=== PATIENT | male | born 1965 | race African-American/Black ===

== ENCOUNTER 2018-10-17 07:10 | Emergency (ER) | payer OTHER ==
[2018-10-17 07:40] VITALS: BP 130/80; PULSE 81; TEMP 98.5; BMI 30.5
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
== END 2018-10-17 09:01 | disposition home or self-care (01) ==
LOC: JER 07:10
DX: M79.642 Pain in left hand (principal); Y04.2XXA Assault by strike against or bumped into by another person, initial encounter; Y93.89 Activity, other specified; Y92.238 Other place in hospital as the place of occurrence of the external cause; Y99.0 Civilian activity done for income or pay; Y07.9 Unspecified perpetrator of maltreatment and neglect
CPT/HCPCS: 73130-TC-LT-FY; 99281-25

== ENCOUNTER 2021-09-03 19:55 | Emergency (ER) | payer BC, OTHER ==
[2021-09-03 20:17] VITALS: BP 141/84; PULSE 120; TEMP 98; BMI 33.5
== END 2021-09-03 20:59 | disposition home or self-care (01) ==
LOC: JERFT 19:55
DX: L02.31 Cutaneous abscess of buttock (principal); L03.317 Cellulitis of buttock
CPT/HCPCS: 87070; 87205; 99283-25

== ENCOUNTER 2022-07-15 09:54 | Emergency (ER) | payer BC ==
[2022-07-15 10:11] VITALS: TEMP 98.2; BMI 33.7
[2022-07-15] MEDS ORDERED: FAMOTIDINE 20 MG/50 ML IVPB 20 MG/50 ML MG IVPB ONE (10:46)
[2022-07-15] MEDS ORDERED: ACETAMINOPHEN 1000 MG/100 ML BAG IVPB ONE (10:46)
[2022-07-15] MEDS ORDERED: MAG HYDROX/AL HYDROX/SIMETH 30 ML UNIT-DOSE CUP PO ONE (10:46)
[2022-07-15] MEDS ORDERED: FAMOTIDINE 10 MG/ML VIAL IVPB ONE (11:05)
[2022-07-15] MEDS ORDERED: ACETAMINOPHEN INJECTION 100 ML IVPB ONE (11:05)
[2022-07-15] MEDS ORDERED: MAG HYDROX/AL HYDROX/SIMETH 30 ML UNIT-DOSE CUP ONE (11:05)
[2022-07-15 11:40] LABS: HEMATOCRIT 44.1 % (35.4-49); HEMOGLOBIN 15.3 GM/dL (11.7-16.9); MCH 28.5 pg (25.7-33.7); MCHC 34.7 g/dl (32.0-35.9); MEAN CELL VOLUME 82.1 fl (80-96); MEAN PLT VOLUME 9.8 fl (7.5-11.1); PLATELET COUNT 173 10^3/uL (134-434); RBC 5.37 M/mm3 (4.00-5.60); RDW 13.5 % (11.9-15.9); WHITE BLOOD COUNT 5.3 K/mm3 (4.0-10.0)
[2022-07-15 12:06] LABS: POTASSIUM 4.6 mmol/L (3.5-5.1)
[2022-07-15 12:11] LABS: ALBUMIN 3.6 g/dl (3.4-5.0); BLOOD UREA NITROGEN 12.2 mg/dL (7-18)
[2022-07-15 12:12] LABS: MAGNESIUM 2.5 mg/dL (1.8-2.4)
[2022-07-15 12:13] LABS: CREATININE 0.8 mg/dL (0.55-1.3)
[2022-07-15 12:15] LABS: BILIRUBIN,TOTAL 0.5 mg/dL (0.2-1); TOT PROT 7.2 g/dl (6.4-8.2)
[2022-07-15 13:41] VITALS: BP 139/85; PULSE 58; RESP 17
== END 2022-07-15 14:11 | disposition left against medical advice (07) ==
LOC: JER 09:54
PROC: 3E033GC Introduction of Other Therapeutic Substance into Peripheral Vein, Percutaneous Approach (ICD-10-PCS; principal; 2022-07-15)
PROC: 3E033NZ Introduction of Analgesics, Hypnotics, Sedatives into Peripheral Vein, Percutaneous Approach (ICD-10-PCS; 2022-07-15)
DX: R07.9 Chest pain, unspecified (principal); Z20.822 Contact with and (suspected) exposure to COVID-19
CPT/HCPCS: 36415; 71045-TC-FY; 80053; 83735; 84484; 85027; 93005; 93010; 99285-25; C9803-CS; U0003; U0005